=== PATIENT | female | born 1960 | race African-American/Black ===

== ENCOUNTER → 2019-02-07 | Outpatient (CLI) | payer BC | LOC: COL.VAS 16:03 | DX: Z13.6 Encounter for screening for cardiovascular disorders (principal); M25.561 Pain in right knee ==

== ENCOUNTER 2019-08-30 19:30 | Emergency (ER) | payer BC ==
[~2019-08-30] VITALS: Ht 175.3 cm; Wt 131.8 kg
[2019-08-30 19:45] VITALS: TEMP 98.3
[2019-08-30] MEDS ORDERED: HCTZ 25MG TAB25 MG PO (20:25)
[2019-08-30] MEDS ORDERED: KLOR-CON SPRIN10 MEQ PO (20:26)
[2019-08-30] MEDS ORDERED: PREDNISONE20 MG PO (20:41)
[2019-08-30] MEDS ORDERED: AMOXICILLIN 8751 TAB PO (20:42)
[2019-08-30 20:57] VITALS: BP 144/87; PULSE 87
== END 2019-08-30 20:57 | disposition home or self-care (01) ==
LOC: COL.ER 19:30
DX: J01.90 Acute sinusitis, unspecified (principal); I10 Essential (primary) hypertension

== ENCOUNTER 2020-01-22 12:26 | Emergency (ER) | payer BC ==
[~2020-01-22] VITALS: Ht 175.3 cm; Wt 125.5 kg
[~2020-01-22 12:26] MED LIST: AMOXICILLIN 8751 TAB PO; HCTZ 25MG TAB25 MG PO; KLOR-CON SPRIN10 MEQ PO; PREDNISONE20 MG PO
[2020-01-22 12:29] VITALS: TEMP 97.2
[2020-01-22 13:08] LABS: BASO # 0.1 (0.0-0.2); BASO % 0.6 % (0.0-2.0); EOS # 0.3 (0.0-0.7); EOS % 3.1 % (0-4.0); GRAN # 4.3 (1.4-6.5); HEMATOCRIT 40.8 % (37.0-47.0); HEMOGLOBIN 12.9 g/dl (12.5-16.0); LYMPH # 3.7 (1.2-3.4); LYMPH % 42.2 % (20.0-51.0); MEAN CELL VOLUME 83 fl (80.0-100.0); MEAN CORPUSCULAR HEMOGLOBIN 26 pg (27.0-31.0); MEAN CORPUSCULAR HGB CONC 32 g/dl (33.0-37.0); MONO # 0.4 (0.1-0.6); MONO % 4.9 % (1.7-9.3); PLATELET COUNT 366 K/mm3 (130-400); RED BLOOD COUNT 4.93 M/mm3 (4.10-5.30); REDCELL DISTRIBUTION WIDTH-CV 14.4 % (11.5-14.5)
[2020-01-22 14:18] LABS: ALANINE AMINOTRANSFERASE 21 U/L (4-34); ALBUMIN 4.4 gm/dL (3.5-5.0); ALKALINE PHOSPHATASE 117 U/L (50-136); ANION GAP 9 mmol/L (7-16); AST,SGOT 27 U/L (15-37); BILIRUBIN,TOTAL 0.5 mg/dL (0.0-1.0); BLOOD UREA NITROGEN 12 mg/dL (7-17); CALCIUM 9.6 mg/dL (8.4-10.2); CARBON DIOXIDE 29 mmol/L (22-30); CHLORIDE 100 mmol/L (98-107); CREATININE, serum 0.83 (0.52-1.25); GLUCOSE 109 mg/dL (74-106); LIPASE 41 U/L (23-300); POTASSIUM 3.9 mmol/L (3.4-5.0); SODIUM 138 mmol/L (137-145); TOTAL PROTEIN 8.6 gm/dL (6.4-8.2)
[2020-01-22 14:30] LABS: TROPONIN-I < 0.012 ng/mL (0.000-0.035)
[2020-01-22] MEDS ORDERED: PROTONIX 40MG T40 MG PO (15:15)
[2020-01-22 15:55] VITALS: BP 139/88; PULSE 84
== END 2020-01-22 15:50 | disposition home or self-care (01) ==
LOC: COL.ER 12:26
PROVIDERS: Emergency Medicine
DX: K21.9 Gastro-esophageal reflux disease without esophagitis (principal); R07.89 Other chest pain; I10 Essential (primary) hypertension; Z79.52 Long term (current) use of systemic steroids; Z82.49 Family history of ischemic heart disease and other diseases of the circulatory system
CPT/HCPCS: C9113

== ENCOUNTER → 2020-10-05 | Outpatient (CLI) | payer BC ==
[~2020-10-05] MED LIST changes: +PROTONIX 40MG T40 MG PO
== END ==
LOC: COL.RAD 07:30
DX: N85.8 Other specified noninflammatory disorders of uterus (principal)
CPT/HCPCS: Q9967

== ENCOUNTER 2021-03-18 11:54 | Emergency (ER) | payer BC ==
[~2021-03-18] VITALS: Ht 175.3 cm; Wt 118.2 kg
[2021-03-18 12:52] VITALS: TEMP 101.2
[2021-03-18] MEDS ORDERED: CELEBREX 200MG200 MG (13:43)
[2021-03-18 14:24] LABS: HEMATOCRIT 40.3 % (37.0-47.0); HEMOGLOBIN 13.3 g/dl (12.5-16.0); MEAN CELL VOLUME 82 fl (80.0-100.0); MEAN CORPUSCULAR HEMOGLOBIN 27 pg (27-31); MEAN CORPUSCULAR HGB CONC 33 g/dl (33.0-37.0); MEAN PLATELET VOLUME 9.6 fl (7.4-10.4); PLATELET COUNT 237 K/mm3 (130-400); RED BLOOD COUNT 4.91 M/mm3 (4.10-5.30); REDCELL DISTRIBUTION WIDTH-CV 14.2 % (11.5-14.5)
[2021-03-18 14:41] LABS: ALBUMIN 2.9 gm/dL (3.4-4.8); BILIRUBIN,TOTAL 0.5 mg/dL (0.2-1.2); CALCIUM 9.1 mg/dL (8.4-10.2); CREATININE, serum 0.71 mg/dL (0.57-1.11); POTASSIUM 3.9 mmol/L (3.5-4.5); TOTAL PROTEIN 7.8 gm/dL (6.2-8.1)
[2021-03-18 14:43] LABS: BAND 2 % (0-10); LYMPHOCYTE 18 % (20.0-51.0); NEUTROPHILS 77 % (42.0-75.2); PLATELET ESTIMATE NORMAL (NORMAL)
[2021-03-18] MEDS ORDERED: ZOFRAN ODT4 MG PO (15:35)
[2021-03-18 16:07] VITALS: BP 119/78; PULSE 90
== END 2021-03-18 16:15 | disposition home or self-care (01) ==
LOC: COL.ER 11:54
PROVIDERS: Physician Assistant
DX: U07.1 COVID-19 (principal); E66.9 Obesity, unspecified; Z68.38 Body mass index [BMI] 38.0-38.9, adult
CPT/HCPCS: J2405; J7030

== ENCOUNTER → 2021-06-04 | Outpatient (CLI) | payer BC ==
[~2021-06-04] MED LIST changes: +CELEBREX 200MG200 MG; +ZOFRAN ODT4 MG PO
== END ==
LOC: MC.RAD 14:30
DX: Z12.31 Encounter for screening mammogram for malignant neoplasm of breast (principal)

== ENCOUNTER → 2021-06-17 | Outpatient (CLI) | payer BC | LOC: MC.RAD 07:00 | DX: R92.0 Mammographic microcalcification found on diagnostic imaging of breast (principal); N63.10 Unspecified lump in the right breast, unspecified quadrant ==

== ENCOUNTER → 2021-07-03 | Outpatient (CLI) | payer BC | LOC: MC.RAD 08:27 | DX: N63.10 Unspecified lump in the right breast, unspecified quadrant (principal); Z98.82 Breast implant status ==

== ENCOUNTER → 2022-05-16 | Outpatient (CLI) | payer BC | LOC: COL.RAD 07:03 | DX: D25.9 Leiomyoma of uterus, unspecified (principal); R93.89 Abnormal findings on diagnostic imaging of other specified body structures ==